=== PATIENT | male | born 1995 | race Two or more races ===

== ENCOUNTER 2023-10-08 13:17 | Emergency (ER) | payer MEDICARE, OTHER ==
[~2023-10-08] VITALS: Ht 177.8 cm; Wt 86.4 kg
[2023-10-08] MEDS ORDERED: IBUPROFEN 400 MG TABLET ONE (14:18)
[2023-10-08] MEDS ORDERED: ACETAMINOPHEN ES 500 MG TABLET ONE (14:18)
[2023-10-08] MEDS: IBUPROFEN 400 MG TABLET PO ONE (14:22)
[2023-10-08] MEDS: ACETAMINOPHEN ES 500 MG TABLET PO ONE (14:22)
[2023-10-08 14:30] VITALS: BP 131/81; TEMP 98.1; O2SAT 100
== END 2023-10-08 14:30 | disposition home or self-care (01) ==
LOC: ER 13:27
DX: B34.9 Viral infection, unspecified (principal); R50.9 Fever, unspecified; R51.9 Headache, unspecified; M79.10 Myalgia, unspecified site; F20.9 Schizophrenia, unspecified